=== PATIENT | male | born 1970 | race Caucasian/White ===

== ENCOUNTER 2017-04-04 17:15 | Emergency (ER) | payer OTHER ==
[~2017-04-04] VITALS: Ht 170.2 cm; Wt 83.9 kg
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
[2017-04-04 18:16] LABS: ABSOLUTE BASOPHIL COUNT 0 /CUMM (0.0-0.2); ABSOLUTE EOSINOPHIL COUNT 0.1 /CUMM (0.0-0.7); BASOPHIL % 0.2 % (0.0-2.0); EOSINOPHIL % 0.4 % (0-5); GRANULOCYTE % 87.2 % (42.2-75.2); HEMATOCRIT 42.9 % (42-52); MEAN CORPUSCULAR HGB 27.3 PG (27.0-31.0); MEAN CORPUSCULAR HGB CONC 32.8 G/DL (33.0-37.0); MEAN CORPUSCULAR VOLUME 83.3 FL (80.0-94.0); MEAN PLATELET VOLUME 7.5 FL (7.4-10.4); PLATELET COUNT 297 /CUMM (130-400); RBC DISTRIBUTION WIDTH 13.8 % (11.5-14.5); RED BLOOD CELL CT 5.15 /CUMM (4.70-6.10)
--- NOTE | 2017-04-04 19:59 | CT SCAN REPORT ---
EXAMINATION: CT CERVICAL SPINE WITHOUT CONTRAST CLINICAL INFORMATION: Trauma. Upper back pain. COMPARISON: None TECHNIQUE: Multidetector helical imaging was performed in the axial plane with generation of reformatted acquisitions. DLP: 311.02 mGy-cm FINDINGS: No acute fracture or dislocation is identified. Multilevel endplate spurring and sclerotic changes are noted with mild disc space narrowing and facet arthropathy, most notable at the C5-C6 level. The craniovertebral junction appears normal. The atlantoaxial articulation is maintained. The mastoid air cells are clear. The imaged portions of the brain demonstrate no acute abnormality. The TMJs are normal. The paraspinal soft tissues are unremarkable. There are mild atherosclerotic calcifications at the carotid bifurcations. The lung apices are clear with a nonspecific 4 mm nodular density in the right upper lobe. IMPRESSION: No acute traumatic findings. Mild to moderate cervical spondylosis. Nonspecific 4 mm nodular density in the right upper lobe posteriorly. Various management parameters for solitary pulmonary nodules are in the literature. According to the Fleischner Society, recommendations for pulmonary nodules are as follows: Nodule size < or = to 4 mm in LOW RISK PATIENTS: No follow up needed. Nodule size < or = to 4 mm in HIGH RISK PATIENTS: Follow up CT at 12 months; if unchanged, no further follow up.
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
[2017-04-04] MEDS ORDERED: IBUPROFEN800 M1 PO (20:50)
[2017-04-04] MEDS ORDERED: PERCOCET 5-3251 EACH PO (20:50)
[2017-04-04 22:01] VITALS: BP 132/78
== END 2017-04-04 22:01 ==
LOC: ERH 17:15
PROVIDERS: Emergency Medicine
DX: S22.31XA Fracture of one rib, right side, initial encounter for closed fracture (principal); M54.9 Dorsalgia, unspecified; V86.59XA Driver of other special all-terrain or other off-road motor vehicle injured in nontraffic accident, initial encounter
CPT/HCPCS: 74174; 81003; 96374; 96375